=== PATIENT | female | born 1975 | race Hispanic/Latino ===

== ENCOUNTER 2020-05-27 12:14 | Outpatient (CLI) | payer OTHER ==
--- NOTE | 2020-05-27 14:30 | XRay Report ---
LUMBAR SPINE 3 VIEWS INDICATION / CLINICAL INFORMATION: BACK PAIN COMPARISON: None available. FINDINGS: BONES / JOINT(S): No acute fracture or subluxation. No significant arthritis. SOFT TISSUES: No significant abnormality. ADDITIONAL FINDINGS: Previous cholecystectomy. Signer Name: Ian Driver MD Signed: 05/27/2020 2:26 PM Workstation Name: [id number]
--- NOTE | 2020-05-27 14:32 | XRay Report ---
BILATERAL KNEES 2 VIEWS EACH INDICATION / CLINICAL INFORMATION: BILATERAL KNEE PAIN COMPARISON: None available. FINDINGS: BONES / JOINT(S): No acute fracture or subluxation. 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 SOFT TISSUES: No joint effusion. ADDITIONAL FINDINGS: None. Signer Name: Ian Driver MD Signed: 05/27/2020 2:28 PM Workstation Name: [id number]
== END 2020-05-27 12:15 | disposition home or self-care (01) ==
LOC: XRAY 12:14
PROVIDERS: ATTEND Internal Medicine
DX: M17.0 Bilateral primary osteoarthritis of knee (principal); M54.5 Low back pain
CPT/HCPCS: 72100

== ENCOUNTER 2020-10-05 08:41 | Outpatient (CLI) | payer OTHER ==
[2020-10-05] MEDS ORDERED: ALBUTEROL 2.5 MG/3 ML NEBU IH ONE (09:49)
== END 2020-10-05 08:42 | disposition home or self-care (01) ==
LOC: PF 08:41
PROVIDERS: ATTEND Internal Medicine
DX: R06.02 Shortness of breath (principal); F17.210 Nicotine dependence, cigarettes, uncomplicated
CPT/HCPCS: 94640; A9270